=== PATIENT | male | born 1970 | race Caucasian/White ===

== ENCOUNTER 2024-12-08 07:07 | Emergency (ER) | payer OTHER, SELFPAY ==
[2024-12-08 07:08] VITALS: BP 157/91; PULSE 89; RESP 16; TEMP 36.7; O2SAT 95; BMI 32.5
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
[2024-12-08] MEDS: iohexol 350 mg/mL 500 mL Btl (per mL) IV (07:52)
[2024-12-08 07:58] LABS: Basophils % 0.3 %; Eosinophils # 0.2 10^3/uL (0.0-0.8); Eosinophils % 1.8 %; Hematocrit 49.5 % (37-53); Lymphocytes # 2.2 10^3/uL (0.8-4.8); Lymphocytes % 24.5 %; Mean Corpuscular HGB Conc 33.1 g/dL (30-55); Mean Corpuscular Hemoglobin 31.2 pg (27-33); Mean Corpuscular Volume 94.3 fl (82-101); Mean Platelet Volume 11.4 fL (7.4-10.4); Monocytes # 0.6 10^3/uL (0.2-0.9); Monocytes % 6.6 %; Neutrophils # 5.99 10^3/uL (1.8-7.7); Neutrophils % 66.1 %; Nucleated Red Blood Cells % 0 %; Platelet Count 161 10^3/cmm (157-399); Red Blood Count 5.25 10^6/uL (3.85-5.65); Red Cell Distribution Width 12.2 % (12.1-15.1); White Blood Count 9.06 10^3/uL (3.29-11.43)
[2024-12-08 07:59] VITALS: BP 142/86; PULSE 86; O2SAT 95
[2024-12-08 08:12] LABS: Alanine Aminotransferase 32 U/L (0-41); Albumin Level 4.9 g/dL (3.5-5.2); Alkaline Phosphatase 73 U/L (40-130); Aspartate Amino Transferase 33 U/L (0-40); Blood Urea Nitrogen 24 mg/dL (6-20); Calcium 9.9 mg/dL (8.5-10.5); Carbon Dioxide 26 mmol/L (22-29); Chloride 104 mmol/L (98-107); Creatinine Clr Calc Pharmacy 118.2639; Globulin 2.3 g/dL (1.3-4.6); Glomerular Filtration Rate 78.2 mL/min (90-130); Glucose 131 mg/dL (65-115); Osmolality Calculated 302 mOsm/kg (285-295); Sodium 143 mmol/L (136-145); Total Bilirubin 1.4 mg/dL (0.15-1.2); Total Protein 7.2 g/dL (6.6-8.7)
[2024-12-08] MEDS: ketorolac 30 mg/mL INJ 15 MG IVP (09:25)
--- NOTE | 2024-12-08 09:33 | PC.NURSE ---
PT CLOTHES REMOVED AND PT SKIN CLEANED WITH SOAP AND WATER DUE TO GASOLINE IRRITATION ON SKIN. PT BELONGINGS BAGGED AND GIVEN TO .
[2024-12-08 09:35] VITALS: BP 143/91; PULSE 76; O2SAT 99
[2024-12-08 09:46] LABS: Amphetamines Screen Urine Negative (Negative); Barbiturates Screen Urine Negative (Negative); Benzodiazepines Screen Urine Negative (Negative); Cocaine Screen Urine Negative (Negative); Opiate Screen Urine Negative (Negative); PCP Screen Urine Negative (Negative); THC Screen Urine Negative (Negative)
[2024-12-08 09:48] VITALS: BP 143/91; PULSE 83; O2SAT 95
== END 2024-12-08 10:25 | disposition home or self-care (01) ==
PROVIDERS: Emergency Provider Emergency Medicine
DX: S22.42XA Multiple fractures of ribs, left side, initial encounter for closed fracture (principal); S01.311A Laceration without foreign body of right ear, initial encounter; S09.8XXA Other specified injuries of head, initial encounter; S01.01XA Laceration without foreign body of scalp, initial encounter; V89.2XXA Person injured in unspecified motor-vehicle accident, traffic, initial encounter; E04.1 Nontoxic single thyroid nodule; M54.2 Cervicalgia
CPT/HCPCS: 70450; 71260; 72125; 74177; 80053; 80306; 85025; 96374; 99285; J1885